=== PATIENT | male | born 1945 | race Hispanic/Latino ===

== ENCOUNTER 2023-03-21 16:28 | Inpatient (IN) | payer OTHER ==
[~2023-03-21] VITALS: Ht 177.8 cm; Wt 59.9 kg
[2023-03-21] VITALS (7 sets, daily range): BP systolic 124–150; BP diastolic 57–82; PULSE 62–68; RESP 18–20
[2023-03-21 17:13] LABS: MEAN CORPUSCULAR HEMOGLOBIN 28.4 pg (27.0-33.0); MEAN CORPUSCULAR HGB CONC 32.5 g/dL (32.0-36.0); MEAN CORPUSCULAR VOLUME 87.5 fL (79-99); PLATELET COUNT (AUTO) 39 K/uL (130-400); RED BLOOD CELL COUNT(AUTO) 2.32 MIL/uL (4.50-6.20); RED CELL DISTRIBUTION WIDTH 17.1 % (11.0-15.5)
[2023-03-21 17:23] LABS: HEMATOCRIT 20.3 % (42-54)
[2023-03-21 17:45] LABS: ALBUMIN 3.7 g/dL (3.5-5.0); CREATININE 1.2 mg/dL (0.5-1.5); POTASSIUM 4.6 mmol/L (3.5-5.1); TOTAL PROTEIN, SERUM 7.3 g/dL (6.0-8.3)
[2023-03-21] MEDS ORDERED: ACETAMINOPHEN 325 MG TAB PO PRN (18:30)
[2023-03-21] MEDS: 0.9%NACL 1000ML 1,000 ML IV SCH (20:36)
[2023-03-21] MEDS ORDERED: MULT-1053 PO (20:49)
[2023-03-21] MEDS ORDERED: RABE20TA30 PO (20:49)
[2023-03-21] MEDS ORDERED: ATOR10 PO (20:49)
[2023-03-21] MEDS ORDERED: SERT-440 PO (20:49)
[2023-03-21] MEDS ORDERED: HYDR-3421 PO (20:49)
[2023-03-21] MEDS ORDERED: LISI20TA24 PO (20:49)
[2023-03-21] MEDS ORDERED: LAMO100T16 PO ×2 (20:49)
[2023-03-21] MEDS ORDERED: LAMOTRIGINE 100 MG TABLET ONE (22:18)
[2023-03-21] MEDS ORDERED: SERTRALINE HCL 50 MG TABLET ONE (22:18)
[2023-03-21] MEDS: HYDROXYZINE 25 MG TABLET PO PRN (22:26)
[2023-03-21] MEDS ORDERED: DEXAMETHASONE SOD PHOSPHATE 4 MG/ML 1ML VIAL IV ONE (22:30)
[2023-03-21] MEDS ORDERED: DiphenhydrAMINE HCL 50 MG/ML VIAL IV ONE (22:30)
[2023-03-22] VITALS (24 sets, daily range): BP systolic 103–146; BP diastolic 42–81; PULSE 53–68; RESP 18–20
[2023-03-22 06:20] LABS: INR 0.98 (0.85-1.15); PROTHROMBIN TIME 11.4 SEC (9.6-11.6)
[2023-03-22 06:21] LABS: PARTIAL THROMBOPLASTIN TIME 30.5 SEC (26.3-35.5)
[2023-03-22] MEDS: LAMOTRIGINE 100 MG TABLET PO SCH ×2 (08:50→21:48)
[2023-03-22 11:06] LABS: HEMATOCRIT 26.3 % (42-54)
[2023-03-22] MEDS ORDERED: FENTANYL CITRATE PF 50 MCG/1 ML 2ML VIAL ONE (11:42)
[2023-03-22] MEDS: 0.9%NACL 1000ML 1,000 ML IV SCH ×2 (18:30→23:09)
[2023-03-22] MEDS ORDERED: NON-FORMULARY MEDICATION 1 EACH (Sertraline HCl 100 MG) PO SCH (21:00)
[2023-03-22] MEDS: HYDROXYZINE 25 MG TABLET PO PRN (21:48)
[2023-03-22] MEDS: SERTRALINE HCL 50 MG TABLET PO SCH (21:48)
[2023-03-23 03:51] VITALS: BP 86/49; PULSE 57; RESP 20
[2023-03-23 04:03] VITALS: BP 104/62; PULSE 53; RESP 20
[2023-03-23] MEDS ORDERED: NON-FORMULARY MEDICATION 1 EACH (Rabeprazole Sodium 20 MG) PO SCH (07:30)
[2023-03-23 08:06] VITALS: BP 106/32; PULSE 51; RESP 16
[2023-03-23] MEDS ORDERED: Vitamin B Complex/Vit C/Folic Acid PO SCH (09:00)
[2023-03-23] MEDS ORDERED: IRON FUM PO SCH (09:00)
[2023-03-23] MEDS ORDERED: FOLIC AC PO SCH (09:00)
[2023-03-23] MEDS ORDERED: PANTOPRAZOLE 40 MG TAB DR PO SCH (09:00)
[2023-03-23] MEDS ORDERED: [UNRECOGNIZED DRUG - OTHER] PO SCH (09:00)
[2023-03-23] MEDS ORDERED: MULTIVIT PO SCH (09:00)
[2023-03-23] MEDS ORDERED: LISINOPRIL 20 MG TABLET PO SCH (09:00)
[2023-03-23] MEDS: LAMOTRIGINE 100 MG TABLET PO SCH ×2 (09:32→20:23)
[2023-03-23 10:45] LABS: HEMATOCRIT 26.5 % (42-54); MEAN CORPUSCULAR HEMOGLOBIN 28.7 pg (27.0-33.0); MEAN CORPUSCULAR HGB CONC 33.2 g/dL (32.0-36.0); MEAN CORPUSCULAR VOLUME 86.3 fL (79-99); RED BLOOD CELL COUNT(AUTO) 3.07 MIL/uL (4.50-6.20); RED CELL DISTRIBUTION WIDTH 16.1 % (11.0-15.5); WHITE BLOOD COUNT (AUTO) 1.2 K/uL (4.8-10.8)
[2023-03-23 11:01] LABS: CREATININE 1.2 mg/dL (0.5-1.5)
[2023-03-23 12:10] VITALS: BP 108/61; PULSE 55; RESP 17
[2023-03-23 13:11] LABS: APPEARANCE,URINE CLEAR (CLEAR); BILIRUBIN,URINE NEGATIVE (NEGATIVE); COLOR,URINE LIGHT-YELLOW (YELLOW); GLUCOSE, URINE (UA) NEGATIVE (NEGATIVE); KETONES,URINE NEGATIVE (NEGATIVE); LEUKOCYTE ESTERASE ,URINE NEGATIVE Leu/uL (NEGATIVE); NITRATE,URINE NEGATIVE (NEGATIVE); PH,URINE 5.5 (5.0-8.0); PROTEIN,URINE NEGATIVE (NEGATIVE); UROBILINOGEN,URINE 0.2 mg/dL (0.2-1.0)
[2023-03-23 13:12] LABS: RBC,URINE 0-1 /HPF (0-1); WBC,URINE 0-1 /HPF (0-1)
[2023-03-23 17:00] VITALS: BP 130/73; PULSE 53; RESP 18
[2023-03-23] MEDS: 0.9%NACL 1000ML 1,000 ML IV SCH (18:30)
[2023-03-23 20:00] VITALS: BP 129/75; PULSE 59; RESP 18
[2023-03-23] MEDS: SERTRALINE HCL 50 MG TABLET PO SCH (20:23)
[2023-03-23] MEDS ORDERED: ATORVASTATIN 10 MG TABLET PO SCH (21:00)
[2023-03-24] VITALS: BP 140/62; PULSE 55; RESP 18
== END 2023-03-24 01:10 | disposition short-term general hospital (02) | DRG 835 ==
LOC: EDH 16:28 → DIRECT 16:29 → 3BH 17:36
PROVIDERS: ADMIT Internal Medicine Hematology & Oncology; ATTEND Internal Medicine Hematology & Oncology
PROC: 30233R1 Transfusion of Nonautologous Platelets into Peripheral Vein, Percutaneous Approach (ICD-10-PCS; 2023-03-21)
PROC: 079T3ZX Drainage of Bone Marrow, Percutaneous Approach, Diagnostic (ICD-10-PCS; principal; 2023-03-22)
PROC: 30233N1 Transfusion of Nonautologous Red Blood Cells into Peripheral Vein, Percutaneous Approach (ICD-10-PCS; 2023-03-22)
DX: C92.00 Acute myeloblastic leukemia, not having achieved remission (principal); D61.818 Other pancytopenia; R64 Cachexia; Z68.1 Body mass index [BMI] 19.9 or less, adult; F31.9 Bipolar disorder, unspecified; G20 Parkinson's disease; I10 Essential (primary) hypertension; K21.9 Gastro-esophageal reflux disease without esophagitis
CPT/HCPCS: 36415; 36430; 57010; 76942; 80048; 80053; 81001; 85007; 85014; 85018; 85027; 85049; 85610; 85730; 86850; 86900; 86901; 86923; 87635; 93306; 99152; G0378; J1100; J1200; J3010; P9016; P9034